=== PATIENT | male | born 1975 | race Two or more races ===

== ENCOUNTER 2025-03-28 17:44 | Emergency (ER) | payer OTHER ==
[~2025-03-28] VITALS: Ht 172.7 cm; Wt 81.6 kg
[2025-03-28] MEDS ORDERED: KETOROLAC TROMETHAMINE 60 MG VIAL IM ONE (18:45)
[2025-03-28 21:00] LABS: BASO % 0.6 % (0.1-1.2); EOS # 0.10 (0.04-0.54); EOS % 1.6 % (0.7-7.0); LYMPH # 2.36 (1.18-3.74); LYMPH % 37.3 % (19.3-53.1); MEAN PLATELET VOLUME 9.80 fl (9.4-12.4); MONO # 0.61 (0.24-0.82); MONO % 9.6 % (4.7-12.5); NEUT # 3.20 (1.56-6.13); NEUT % 50.6 % (34.0-71.1); RED CELL DISTRIBUTION WIDTH 14.2 % (11.6-14.4)
[2025-03-28] MEDS ORDERED: NORFLEX100MG PO (21:48)
== END 2025-03-28 22:12 | disposition home or self-care (01) ==
LOC: ER 17:44
PROVIDERS: General Practice
DX: R00.2 Palpitations (principal); M94.0 Chondrocostal junction syndrome [Tietze]